=== PATIENT | male | born 1950 | race Hispanic/Latino ===

== ENCOUNTER 2020-08-20 22:19 | Inpatient (IN) | payer MEDICARE ==
[~2020-08-20] VITALS: Ht 160 cm; Wt 77.1 kg
[2020-08-20] MEDS ORDERED: ACETAMINOPHEN 325 MG TAB PO ONE (23:45)
[2020-08-20] MEDS ORDERED: CEFTRIAXONE SOD 1 GM/NS 50 ML 50 ML IV ONE (23:45)
[2020-08-20] MEDS ORDERED: VANCOMYCIN 1GM/NS 250 ML 250 ML IV ONE (23:45)
[2020-08-20] MEDS ORDERED: ONDANSETRON HCL INJ 2MG/ML 2ML 2 MG/ML VIAL ONE (23:54)
[2020-08-21] VITALS (8 sets, daily range): BP systolic 143–202; BP diastolic 46–158
[2020-08-21 00:04] LABS: BASOPHILS % 0.4 % (0.0-1.0); EOSINOPHILS % 0.4 % (0.0-6.0); HEMATOCRIT 32.4 % (38.2-49.6); HEMOGLOBIN 10.2 g/dL (14.0-18.0); LYMPHOCYTES # (AUTO) 0.6 (1.0-3.2); MEAN CORPUSCULAR HEMOGLOBIN 28.7 pg (28-32); MEAN CORPUSCULAR HGB CONC 31.5 g/dL (31-35); MONOCYTES # (AUTO) 0.7 (0.2-0.8); MONOCYTES % 7.4 % (4.4-11.3); NEUTROPHILS # (AUTO) 8.5 (2.1-6.9); NEUTROPHILS % 85.2 % (38.7-80.0); PLATELET COUNT 91 x10e3/uL (140-360); RED BLOOD COUNT 3.56 x10e6/uL (4.3-5.7); RED CELL DISTRIBUTION WIDTH 16.2 % (11.7-14.4)
[2020-08-21 00:22] LABS: ALBUMIN 3.9 g/dL (3.5-5.0); ANION GAP 20.7 mmol/L (8-16); CALCIUM 9.2 mg/dL (8.4-10.2); CREATININE, SERUM 6.45 mg/dL (0.72-1.25); POTASSIUM 3.7 mmol/L (3.5-5.1)
[2020-08-21 00:28] LABS: CREATINE KINASE MB 0.6 ng/mL (0-5.0)
[2020-08-21] MEDS ORDERED: ACETAMINOPHEN 325 MG TAB PO PRN ×2 (03:30→12:30)
[2020-08-21] MEDS ORDERED: SODIUM CHLORIDE FLUSH 10 ML SYR INJ PRN (03:30)
[2020-08-21] MEDS ORDERED: DEXTROSE 50% SYRINGE 50 ML IV PRN ×2 (03:30→12:15)
[2020-08-21] MEDS ORDERED: ONDANSETRON HCL INJ 2MG/ML 2ML 2 MG/ML VIAL IV PRN ×2 (03:30→12:30)
[2020-08-21] MEDS: HYDRALAZINE HCL 20 MG/ML VIAL IV PRN ×2 (06:08→17:38)
[2020-08-21] MEDS: INSULIN REGULAR, HUMAN 100 UNIT/1 ML 3ML VIAL SQ SCH ×6 (07:30→21:35)
[2020-08-21] MEDS ORDERED: CEFTRIAXONE SOD 2 GM/NS 100 ML 100 ML IV SCH (09:00)
[2020-08-21] MEDS ORDERED: AZITHROMYCIN 500MG/NS 250 ML 250 ML IV SCH (09:00)
[2020-08-21 09:31] LABS: BASOPHILS % 0.6 % (0.0-1.0); EOSINOPHILS % 0.3 % (0.0-6.0); HEMATOCRIT 32.7 % (38.2-49.6); HEMOGLOBIN 10.1 g/dL (14.0-18.0); LYMPHOCYTES # (AUTO) 1.1 (1.0-3.2); LYMPHOCYTES % 15.8 % (18.0-39.1); MEAN CORPUSCULAR HEMOGLOBIN 28.2 pg (28-32); MEAN CORPUSCULAR HGB CONC 30.9 g/dL (31-35); MEAN CORPUSCULAR VOLUME 91.3 fL (81-99); MONOCYTES # (AUTO) 0.9 (0.2-0.8); MONOCYTES % 13.4 % (4.4-11.3); NEUTROPHILS # (AUTO) 4.9 (2.1-6.9); NEUTROPHILS % 69.3 % (38.7-80.0); PLATELET COUNT 72 x10e3/uL (140-360); RED BLOOD COUNT 3.58 x10e6/uL (4.3-5.7); RED CELL DISTRIBUTION WIDTH 16.4 % (11.7-14.4)
[2020-08-21 09:53] LABS: ALBUMIN 3.3 g/dL (3.5-5.0); ALBUMIN/GLOBULIN RATIO 0.9 (0.8-2.0); ANION GAP 19.2 mmol/L (8-16); CALCIUM 8.6 mg/dL (8.4-10.2); CREATININE, SERUM 7.51 mg/dL (0.72-1.25); POTASSIUM 4.2 mmol/L (3.5-5.1)
[2020-08-21] MEDS: ZINC SULFATE 220 MG CAP PO SCH (11:17)
[2020-08-21] MEDS: ASCORBIC ACID 500 MG TAB PO SCH ×2 (11:17→17:38)
[2020-08-21] MEDS ORDERED: SODIUM CHLORIDE 0.9% 250ML 250 ML ONE (11:20)
[2020-08-21] MEDS ORDERED: HYDRALAZINE HCL 20 MG/ML VIAL IV PRN (12:15)
[2020-08-21] MEDS ORDERED: GUAIFENESIN 200 MG/10 ML UDC PO PRN (12:30)
[2020-08-21] MEDS ORDERED: NIFEDIPINE CR 30 MG TAB PO ONE (13:00)
[2020-08-21] MEDS ORDERED: RENAL-VITE TAB0.8 MG (19:20)
[2020-08-21] MEDS ORDERED: ATORVASTATIN CA20 MG PO (19:20)
[2020-08-21] MEDS ORDERED: TRICOR145 MG PO (19:20)
[2020-08-21] MEDS ORDERED: CLONIDINE HCL0.1 MG PO (19:20)
[2020-08-21] MEDS ORDERED: METOCLOPRAM5 MG/5 ML PO (19:20)
[2020-08-21] MEDS ORDERED: RENAGEL800 MG PO (19:20)
[2020-08-21] MEDS ORDERED: NIFEDIPINE ER30 MG (19:20)
[2020-08-21] MEDS ORDERED: OMEPRAZOLE40 MG PO (19:20)
[2020-08-21] MEDS: HEPARIN SOD (PORCINE) 5,000 UNIT/ML VIAL SC SCH (21:35)
[2020-08-22] VITALS (9 sets, daily range): BP systolic 116–173; BP diastolic 65–73
[2020-08-22 06:02] LABS: BASOPHILS # (AUTO) 0.1 (0.0-0.1); EOSINOPHILS # (AUTO) 0.1 (0.0-0.4); EOSINOPHILS % 0.8 % (0.0-6.0); HEMATOCRIT 32.3 % (38.2-49.6); LYMPHOCYTES # (AUTO) 1.5 (1.0-3.2); LYMPHOCYTES % 24.4 % (18.0-39.1); MEAN CORPUSCULAR HEMOGLOBIN 28.2 pg (28-32); MEAN CORPUSCULAR VOLUME 91.2 fL (81-99); MONOCYTES % 16.7 % (4.4-11.3); NEUTROPHILS # (AUTO) 3.5 (2.1-6.9); NEUTROPHILS % 56.8 % (38.7-80.0); PLATELET COUNT 88 x10e3/uL (140-360); RED BLOOD COUNT 3.54 x10e6/uL (4.3-5.7); RED CELL DISTRIBUTION WIDTH 15.9 % (11.7-14.4)
[2020-08-22 06:26] LABS: ALBUMIN 3.1 g/dL (3.5-5.0); ALBUMIN/GLOBULIN RATIO 0.9 (0.8-2.0); ANION GAP 20.2 mmol/L (8-16); CALCIUM 8.2 mg/dL (8.4-10.2); CREATININE, SERUM 9.69 mg/dL (0.72-1.25); POTASSIUM 4.2 mmol/L (3.5-5.1)
[2020-08-22] MEDS: INSULIN REGULAR, HUMAN 100 UNIT/1 ML 3ML VIAL SQ SCH ×6 (07:30→21:00)
[2020-08-22] MEDS: CEFEPIME 1GM/NS 0.9% 50 ML 50 ML IV SCH (08:54)
[2020-08-22] MEDS: NIFEDIPINE CR 30 MG TAB PO SCH (08:55)
[2020-08-22] MEDS: ZINC SULFATE 220 MG CAP PO SCH (08:56)
[2020-08-22] MEDS: ASCORBIC ACID 500 MG TAB PO SCH ×2 (08:56→16:37)
[2020-08-22] MEDS ORDERED: CEFEPIME HCL 1 GM VIAL IV SCH (09:00)
[2020-08-22] MEDS: HEPARIN SOD (PORCINE) 5,000 UNIT/ML VIAL SC SCH ×2 (09:09→21:00)
[2020-08-22] MEDS ORDERED: BAMLANIVIMAB 700 MG in SODIUM CHLORIDE 0.9% 250ML 250 ML IV ONE (15:00)
[2020-08-22] MEDS ORDERED: SODIUM CHLORIDE 0.9% 1000ML 2,000 ML ONE (18:23)
[2020-08-23] VITALS: BP 142/86
[2020-08-23 04:00] VITALS: BP 164/78
[2020-08-23 09:00] VITALS: BP 159/60
[2020-08-23 09:15] VITALS: BP 159/60
[2020-08-23 09:25] LABS: BASOPHILS % 0.4 % (0.0-1.0); HEMOGLOBIN 8.9 g/dL (14.0-18.0); LYMPHOCYTES % 9.2 % (18.0-39.1); MEAN CORPUSCULAR HEMOGLOBIN 28.3 pg (28-32); MEAN CORPUSCULAR HGB CONC 30.7 g/dL (31-35); MEAN CORPUSCULAR VOLUME 92.4 fL (81-99); MONOCYTES # (AUTO) 0.9 (0.2-0.8); NEUTROPHILS # (AUTO) 8.9 (2.1-6.9); PLATELET COUNT 72 x10e3/uL (140-360); RED BLOOD COUNT 3.14 x10e6/uL (4.3-5.7)
[2020-08-23] MEDS: CEFEPIME 1GM/NS 0.9% 50 ML 50 ML IV SCH (09:34)
[2020-08-23] MEDS: ZINC SULFATE 220 MG CAP PO SCH (09:35)
[2020-08-23] MEDS: ASCORBIC ACID 500 MG TAB PO SCH (09:35)
[2020-08-23] MEDS: NIFEDIPINE CR 30 MG TAB PO SCH (09:35)
[2020-08-23] MEDS: HEPARIN SOD (PORCINE) 5,000 UNIT/ML VIAL SC SCH (09:48)
[2020-08-23] MEDS: INSULIN REGULAR, HUMAN 100 UNIT/1 ML 3ML VIAL SQ SCH ×3 (09:49→16:30)
[2020-08-23 10:01] LABS: ALBUMIN 2.3 g/dL (3.5-5.0); ALBUMIN/GLOBULIN RATIO 0.7 (0.8-2.0); CREATININE, SERUM 6.64 mg/dL (0.72-1.25)
[2020-08-23 10:02] LABS: ANION GAP 4.9 mmol/L (8-16)
[2020-08-23 10:06] LABS: CALCIUM 5.9 mg/dL (8.4-10.2); POTASSIUM 2.9 mmol/L (3.5-5.1)
[2020-08-23] MEDS ORDERED: SODIUM CHLORIDE 0.9% 1000ML 2,000 ML IV PRN (11:15)
[2020-08-23] MEDS ORDERED: ALBUMIN 25% 12.5GM 0.25 GM/ML BTL IV PRN (11:15)
[2020-08-23] MEDS ORDERED: MANNITOL 25% 12.5GM/50 ML VIAL IV PRN (11:15)
[2020-08-23 13:06] VITALS: BP 149/65
[2020-08-23 16:59] VITALS: BP 127/46
== END 2020-08-23 16:59 | disposition home health service (06) | DRG 871 ==
LOC: ER 23:37 → ERHOLD 08-21 03:28 → IMCU 08-21 08:23
PROVIDERS: ADMIT Internal Medicine Critical Care Medicine; ATTEND Internal Medicine Critical Care Medicine
DX: A41.9 Sepsis, unspecified organism (principal); U07.1 COVID-19; G93.41 Metabolic encephalopathy; N18.6 End stage renal disease; J12.82 Pneumonia due to coronavirus disease 2019; G92 Toxic encephalopathy; I12.0 Hypertensive chronic kidney disease with stage 5 chronic kidney disease or end stage renal disease; E11.22 Type 2 diabetes mellitus with diabetic chronic kidney disease; D63.1 Anemia in chronic kidney disease; D69.59 Other secondary thrombocytopenia; Z86.73 Personal history of transient ischemic attack (TIA), and cerebral infarction without residual deficits
CPT/HCPCS: 36415; 70450; 71045; 80053; 80329; 82550; 82553; 82948; 83605; 84484; 85025; 86704; 86706; 87040; 87340; J0360; J0456; J0692; J0696; J1644; J2405; J3370; J7030; J7050; U0002

== ENCOUNTER 2020-08-31 23:06 | Inpatient (IN) | payer MEDICARE ==
[~2020-08-31] VITALS: Ht 160 cm; Wt 70.3 kg
[~2020-08-31 23:06] MED LIST: ATORVASTATIN CA20 MG PO; CLONIDINE HCL0.1 MG PO; METOCLOPRAM5 MG/5 ML PO; NIFEDIPINE ER30 MG; OMEPRAZOLE40 MG PO; RENAGEL800 MG PO; RENAL-VITE TAB0.8 MG; TRICOR145 MG PO
[2020-08-31] MEDS ORDERED: ACETAMINOPHEN 325 MG TAB PO ONE (23:15)
[2020-08-31] MEDS ORDERED: ACETAMINOPHEN 325 MG TAB ONE (23:20)
[2020-08-31 23:30] LABS: BASOPHILS % 0.3 % (0.0-1.0); HEMATOCRIT 31.9 % (38.2-49.6); LYMPHOCYTES # (AUTO) 1.2 (1.0-3.2); LYMPHOCYTES % 10.7 % (18.0-39.1); MEAN CORPUSCULAR HEMOGLOBIN 27.9 pg (28-32); MEAN CORPUSCULAR HGB CONC 31.3 g/dL (31-35); MEAN CORPUSCULAR VOLUME 89.1 fL (81-99); MONOCYTES # (AUTO) 0.5 (0.2-0.8); MONOCYTES % 4.1 % (4.4-11.3); NEUTROPHILS # (AUTO) 9.3 (2.1-6.9); NEUTROPHILS % 84.3 % (38.7-80.0); PLATELET COUNT 202 x10e3/uL (140-360); RED BLOOD COUNT 3.58 x10e6/uL (4.3-5.7); RED CELL DISTRIBUTION WIDTH 14.7 % (11.7-14.4)
[2020-08-31 23:49] LABS: ALBUMIN 3.3 g/dL (3.5-5.0); ALBUMIN/GLOBULIN RATIO 0.7 (0.8-2.0); ANION GAP 22.3 mmol/L (8-16); CALCIUM 9.2 mg/dL (8.4-10.2); CREATININE, SERUM 4.9 mg/dL (0.72-1.25); POTASSIUM 3.3 mmol/L (3.5-5.1)
[2020-08-31 23:56] LABS: CREATINE KINASE MB 1.3 ng/mL (0-5.0)
[2020-09-01] VITALS (10 sets, daily range): BP systolic 96–200; BP diastolic 47–75
[2020-09-01] MEDS ORDERED: ASPIRIN 81 MG CHEW TAB PO ONE (00:15)
[2020-09-01] MEDS ORDERED: CEFEPIME 1GM/NS 0.9% 50 ML 50 ML IV ONE (00:15)
[2020-09-01] MEDS: ASPIRIN 81 MG CHEW TAB PO SCH ×2 (00:46→09:01)
[2020-09-01] MEDS ORDERED: DEXTROSE 50% SYRINGE 50 ML IV PRN (01:15)
[2020-09-01] MEDS ORDERED: SODIUM CHLORIDE FLUSH 10 ML SYR INJ PRN (01:15)
[2020-09-01 03:57] LABS: CREATINE KINASE MB 1.2 ng/mL (0-5.0)
[2020-09-01] MEDS ORDERED: METOCLOPRAMIDE HCL 10 MG TAB PO PRN (05:30)
[2020-09-01] MEDS: INSULIN REGULAR, HUMAN 100 UNIT/1 ML 3ML VIAL SQ SCH ×4 (07:30→21:00)
[2020-09-01 08:25] LABS: CREATINE KINASE MB 1.6 ng/mL (0-5.0)
[2020-09-01] MEDS ORDERED: ASPIRIN 81 MG ENTERIC COATED PO SCH (09:00)
[2020-09-01] MEDS ORDERED: DEXAMETHASONE SOD PHOS INJ 4 MG/ML VIAL IV ONE (09:00)
[2020-09-01] MEDS: FOLIC ACID/CYANOCOB/PYRIDOXINE TAB PO SCH (09:01)
[2020-09-01] MEDS: FENOFIBRATE 145 MG TAB PO SCH (09:01)
[2020-09-01] MEDS: PANTOPRAZOLE SOD 40 MG TABEC PO SCH (09:01)
[2020-09-01] MEDS: NIFEDIPINE CR 30 MG TAB PO SCH ×2 (09:01→17:14)
[2020-09-01] MEDS: HEPARIN SOD (PORCINE) 5,000 UNIT/ML VIAL SC SCH ×2 (09:02→22:43)
[2020-09-01] MEDS: METOPROLOL TARTRATE 25 MG TAB PO SCH ×2 (10:50→16:00)
[2020-09-01] MEDS: HYDRALAZINE HCL 20 MG/ML VIAL IV PRN (11:50)
[2020-09-01] MEDS: SEVELAMER CARBONATE 800 MG TAB PO SCH ×2 (11:56→17:14)
[2020-09-01] MEDS: ATORVASTATIN 20 MG TAB PO SCH (22:38)
[2020-09-02] VITALS (9 sets, daily range): BP systolic 101–182; BP diastolic 50–77
[2020-09-02] MEDS: ACETAMINOPHEN 325 MG TAB PO PRN (02:54)
[2020-09-02] MEDS ORDERED: ONDANSETRON HCL INJ 2MG/ML 2ML 2 MG/ML VIAL IV PRN (03:30)
[2020-09-02] MEDS ORDERED: KETOROLAC TROMETHAMINE 30 MG/ML VIAL IV STA (03:36)
[2020-09-02] MEDS: METHYLPREDNISOLONE SOD SUCC 125 MG/2ML VIAL IV SCH ×2 (04:15→14:30)
[2020-09-02 05:00] LABS: BASOPHILS % 0.3 % (0.0-1.0); HEMATOCRIT 25.9 % (38.2-49.6); HEMOGLOBIN 8.3 g/dL (14.0-18.0); LYMPHOCYTES # (AUTO) 1.3 (1.0-3.2); LYMPHOCYTES % 12.6 % (18.0-39.1); MEAN CORPUSCULAR VOLUME 87.5 fL (81-99); MONOCYTES # (AUTO) 0.3 (0.2-0.8); MONOCYTES % 2.6 % (4.4-11.3); NEUTROPHILS # (AUTO) 8.4 (2.1-6.9); PLATELET COUNT 218 x10e3/uL (140-360); RED BLOOD COUNT 2.96 x10e6/uL (4.3-5.7); RED CELL DISTRIBUTION WIDTH 14.5 % (11.7-14.4)
[2020-09-02 05:23] LABS: ALBUMIN 2.6 g/dL (3.5-5.0); ALBUMIN/GLOBULIN RATIO 0.6 (0.8-2.0); ANION GAP 21.4 mmol/L (8-16); CALCIUM 8.2 mg/dL (8.4-10.2); CREATININE, SERUM 8.4 mg/dL (0.72-1.25); POTASSIUM 3.4 mmol/L (3.5-5.1)
[2020-09-02] MEDS: METOCLOPRAMIDE HCL 10 MG/2ML VIAL IV SCH ×4 (08:30→23:00)
[2020-09-02] MEDS: INSULIN REGULAR, HUMAN 100 UNIT/1 ML 3ML VIAL SQ SCH ×4 (08:30→21:00)
[2020-09-02] MEDS: SEVELAMER CARBONATE 800 MG TAB PO SCH ×3 (08:30→17:02)
[2020-09-02] MEDS: HEPARIN SOD (PORCINE) 5,000 UNIT/ML VIAL SC SCH ×2 (08:30→22:00)
[2020-09-02] MEDS: FOLIC ACID/CYANOCOB/PYRIDOXINE TAB PO SCH (08:30)
[2020-09-02] MEDS: FENOFIBRATE 145 MG TAB PO SCH (08:30)
[2020-09-02] MEDS: ASPIRIN 81 MG CHEW TAB PO SCH (08:30)
[2020-09-02] MEDS: PANTOPRAZOLE SOD 40 MG TABEC PO SCH (08:30)
[2020-09-02] MEDS: NIFEDIPINE CR 30 MG TAB PO SCH ×2 (09:00→16:06)
[2020-09-02] MEDS: METOPROLOL TARTRATE 25 MG TAB PO SCH ×2 (09:00→16:06)
[2020-09-02 09:49] LABS: CHOL/HDL RATIO 6.8 (3.9-4.7)
[2020-09-02 10:11] LABS: THYROID STIMULATING HORMONE 1.789 uIU/mL (0.350-4.940)
[2020-09-02] MEDS ORDERED: SODIUM CHLORIDE 0.9% 1000ML 2,000 ML IV PRN (12:30)
[2020-09-02] MEDS: CEFTRIAXONE SOD 1 GM in SODIUM CHLORIDE 0.9% 50ML 50 ML IV SCH ×2 (20:39→23:00)
[2020-09-02] MEDS ORDERED: SODIUM CHLORIDE 0.9% 250ML 250 ML ONE (21:37)
[2020-09-02] MEDS: ATORVASTATIN 20 MG TAB PO SCH (23:21)
[2020-09-03] VITALS (8 sets, daily range): BP systolic 118–172; BP diastolic 61–78
[2020-09-03] MEDS: HYDRALAZINE HCL 20 MG/ML VIAL IV PRN (06:03)
[2020-09-03] MEDS: METOCLOPRAMIDE HCL 10 MG/2ML VIAL IV SCH ×4 (09:45→20:48)
[2020-09-03] MEDS: PANTOPRAZOLE SOD 40 MG TABEC PO SCH (09:45)
[2020-09-03] MEDS: DEXAMETHASONE SOD PHOS INJ 4 MG/ML VIAL IV SCH (09:45)
[2020-09-03] MEDS: SEVELAMER CARBONATE 800 MG TAB PO SCH ×3 (09:45→16:32)
[2020-09-03] MEDS: NIFEDIPINE CR 30 MG TAB PO SCH ×2 (09:46→16:32)
[2020-09-03] MEDS: ASPIRIN 81 MG CHEW TAB PO SCH (09:46)
[2020-09-03] MEDS: FENOFIBRATE 145 MG TAB PO SCH (09:46)
[2020-09-03] MEDS: FOLIC ACID/CYANOCOB/PYRIDOXINE TAB PO SCH (09:46)
[2020-09-03] MEDS: METOPROLOL TARTRATE 25 MG TAB PO SCH ×2 (09:46→16:32)
[2020-09-03] MEDS: INSULIN REGULAR, HUMAN 100 UNIT/1 ML 3ML VIAL SQ SCH ×4 (09:58→20:49)
[2020-09-03] MEDS: HEPARIN SOD (PORCINE) 5,000 UNIT/ML VIAL SC SCH ×2 (09:58→20:49)
[2020-09-03] MEDS: PIPERACILLIN/TAZOBAC 3.375 GM in SODIUM CHLORIDE 0.9% 50ML 50 ML IV SCH (16:31)
[2020-09-03] MEDS: ACETAMINOPHEN 325 MG TAB PO PRN (16:33)
[2020-09-03] MEDS: ATORVASTATIN 20 MG TAB PO SCH (20:48)
[2020-09-04] VITALS (8 sets, daily range): BP systolic 125–158; BP diastolic 55–66
[2020-09-04] MEDS ORDERED: INSULIN GLARGINE 100 UNITS/ML VIAL SQ ONE (02:15)
[2020-09-04] MEDS: INSULIN REGULAR, HUMAN 100 UNIT/1 ML 3ML VIAL SQ SCH ×3 (07:30→15:31)
[2020-09-04] MEDS: METOCLOPRAMIDE HCL 10 MG/2ML VIAL IV SCH ×4 (10:29→23:36)
[2020-09-04] MEDS: SEVELAMER CARBONATE 800 MG TAB PO SCH ×3 (10:29→16:19)
[2020-09-04] MEDS: DEXAMETHASONE SOD PHOS INJ 4 MG/ML VIAL IV SCH (10:29)
[2020-09-04] MEDS: PANTOPRAZOLE SOD 40 MG TABEC PO SCH (10:29)
[2020-09-04] MEDS: FOLIC ACID/CYANOCOB/PYRIDOXINE TAB PO SCH (10:30)
[2020-09-04] MEDS: METOPROLOL TARTRATE 25 MG TAB PO SCH ×2 (10:30→16:19)
[2020-09-04] MEDS: ASPIRIN 81 MG CHEW TAB PO SCH (10:30)
[2020-09-04] MEDS: NIFEDIPINE CR 30 MG TAB PO SCH ×2 (10:30→16:19)
[2020-09-04] MEDS: PIPERACILLIN/TAZOBAC 3.375 GM in SODIUM CHLORIDE 0.9% 50ML 50 ML IV SCH ×2 (10:30→16:19)
[2020-09-04] MEDS: FENOFIBRATE 145 MG TAB PO SCH (10:30)
[2020-09-04] MEDS: HEPARIN SOD (PORCINE) 5,000 UNIT/ML VIAL SC SCH (10:31)
[2020-09-04] MEDS ORDERED: ALBUMIN 25% 12.5GM 0.25 GM/ML BTL IV ONE (20:30)
[2020-09-04] MEDS: ATORVASTATIN 20 MG TAB PO SCH (23:36)
[2020-09-04] MEDS: INSULIN GLARGINE 100 UNITS/ML VIAL SQ SCH (23:48)
[2020-09-05] VITALS (8 sets, daily range): BP systolic 124–157; BP diastolic 49–77
[2020-09-05] MEDS: HEPARIN SOD (PORCINE) 5,000 UNIT/ML VIAL SC SCH ×3 (00:30→21:00)
[2020-09-05] MEDS: INSULIN REGULAR, HUMAN 100 UNIT/1 ML 3ML VIAL SQ SCH ×5 (00:31→21:00)
[2020-09-05] MEDS ORDERED: SODIUM CHLORIDE 0.9% 250ML 500 ML IV PRN (09:30)
[2020-09-05] MEDS ORDERED: MANNITOL 25% 12.5GM/50 ML VIAL IV PRN (09:30)
[2020-09-05] MEDS ORDERED: ALBUMIN 25% 12.5GM 0.25 GM/ML BTL IV PRN (09:30)
[2020-09-05] MEDS: SEVELAMER CARBONATE 800 MG TAB PO SCH ×3 (11:21→17:38)
[2020-09-05] MEDS: ASPIRIN 81 MG CHEW TAB PO SCH (11:21)
[2020-09-05] MEDS: METOCLOPRAMIDE HCL 10 MG/2ML VIAL IV SCH ×4 (11:21→21:12)
[2020-09-05] MEDS: PANTOPRAZOLE SOD 40 MG TABEC PO SCH (11:21)
[2020-09-05] MEDS: PIPERACILLIN/TAZOBAC 3.375 GM in SODIUM CHLORIDE 0.9% 50ML 50 ML IV SCH ×2 (11:21→17:38)
[2020-09-05] MEDS: DEXAMETHASONE SOD PHOS INJ 4 MG/ML VIAL IV SCH (11:21)
[2020-09-05] MEDS: METOPROLOL TARTRATE 25 MG TAB PO SCH ×2 (11:22→17:38)
[2020-09-05] MEDS: NIFEDIPINE CR 30 MG TAB PO SCH ×2 (11:22→17:38)
[2020-09-05] MEDS: FENOFIBRATE 145 MG TAB PO SCH (11:22)
[2020-09-05] MEDS: FOLIC ACID/CYANOCOB/PYRIDOXINE TAB PO SCH (11:22)
[2020-09-05] MEDS: ATORVASTATIN 20 MG TAB PO SCH (21:00)
[2020-09-05] MEDS: INSULIN GLARGINE 100 UNITS/ML VIAL SQ SCH (21:00)
[2020-09-06] VITALS (7 sets, daily range): BP systolic 134–175; BP diastolic 49–84
[2020-09-06] MEDS: INSULIN REGULAR, HUMAN 100 UNIT/1 ML 3ML VIAL SQ SCH ×4 (07:30→21:44)
[2020-09-06] MEDS: METOCLOPRAMIDE HCL 10 MG/2ML VIAL IV SCH ×4 (10:26→21:44)
[2020-09-06] MEDS: DEXAMETHASONE SOD PHOS INJ 4 MG/ML VIAL IV SCH (10:27)
[2020-09-06] MEDS: FOLIC ACID/CYANOCOB/PYRIDOXINE TAB PO SCH (10:27)
[2020-09-06] MEDS: METOPROLOL TARTRATE 25 MG TAB PO SCH ×2 (10:27→17:00)
[2020-09-06] MEDS: PANTOPRAZOLE SOD 40 MG TABEC PO SCH (10:27)
[2020-09-06] MEDS: PIPERACILLIN/TAZOBAC 3.375 GM in SODIUM CHLORIDE 0.9% 50ML 50 ML IV SCH ×2 (10:27→17:50)
[2020-09-06] MEDS: ASPIRIN 81 MG CHEW TAB PO SCH (10:27)
[2020-09-06] MEDS: SEVELAMER CARBONATE 800 MG TAB PO SCH ×3 (10:27→17:00)
[2020-09-06] MEDS: FENOFIBRATE 145 MG TAB PO SCH (10:28)
[2020-09-06] MEDS: NIFEDIPINE CR 30 MG TAB PO SCH ×2 (10:28→17:00)
[2020-09-06] MEDS: HEPARIN SOD (PORCINE) 5,000 UNIT/ML VIAL SC SCH ×2 (10:28→21:44)
[2020-09-06] MEDS: ATORVASTATIN 20 MG TAB PO SCH (21:00)
[2020-09-06] MEDS: INSULIN GLARGINE 100 UNITS/ML VIAL SQ SCH (21:44)
[2020-09-07] VITALS (9 sets, daily range): BP systolic 122–197; BP diastolic 57–87
[2020-09-07] MEDS: HYDRALAZINE HCL 20 MG/ML VIAL IV PRN ×3 (00:37→09:00)
[2020-09-07] MEDS: INSULIN REGULAR, HUMAN 100 UNIT/1 ML 3ML VIAL SQ SCH ×4 (07:30→21:00)
[2020-09-07] MEDS: PANTOPRAZOLE SOD 40 MG TABEC PO SCH (08:59)
[2020-09-07] MEDS: SEVELAMER CARBONATE 800 MG TAB PO SCH ×3 (08:59→17:00)
[2020-09-07] MEDS: METOCLOPRAMIDE HCL 10 MG/2ML VIAL IV SCH ×4 (08:59→21:30)
[2020-09-07] MEDS: METOPROLOL TARTRATE 25 MG TAB PO SCH ×2 (09:00→17:00)
[2020-09-07] MEDS: FOLIC ACID/CYANOCOB/PYRIDOXINE TAB PO SCH (09:00)
[2020-09-07] MEDS: PIPERACILLIN/TAZOBAC 3.375 GM in SODIUM CHLORIDE 0.9% 50ML 50 ML IV SCH ×2 (09:00→17:00)
[2020-09-07] MEDS: ASPIRIN 81 MG CHEW TAB PO SCH (09:00)
[2020-09-07] MEDS: FENOFIBRATE 145 MG TAB PO SCH (09:00)
[2020-09-07] MEDS: DEXAMETHASONE SOD PHOS INJ 4 MG/ML VIAL IV SCH (09:00)
[2020-09-07] MEDS: NIFEDIPINE CR 30 MG TAB PO SCH ×2 (09:00→17:00)
[2020-09-07] MEDS: HEPARIN SOD (PORCINE) 5,000 UNIT/ML VIAL SC SCH ×2 (09:03→21:30)
[2020-09-07 11:07] LABS: BASOPHILS % 0.3 % (0.0-1.0); EOSINOPHILS # (AUTO) 0.2 (0.0-0.4); EOSINOPHILS % 1.3 % (0.0-6.0); HEMATOCRIT 25.4 % (38.2-49.6); HEMOGLOBIN 8.1 g/dL (14.0-18.0); LYMPHOCYTES # (AUTO) 0.7 (1.0-3.2); LYMPHOCYTES % 6.3 % (18.0-39.1); MEAN CORPUSCULAR HEMOGLOBIN 27.4 pg (28-32); MEAN CORPUSCULAR HGB CONC 31.9 g/dL (31-35); MEAN CORPUSCULAR VOLUME 85.8 fL (81-99); MONOCYTES # (AUTO) 0.4 (0.2-0.8); MONOCYTES % 3.8 % (4.4-11.3); NEUTROPHILS # (AUTO) 10.1 (2.1-6.9); NEUTROPHILS % 86.8 % (38.7-80.0); PLATELET COUNT 417 x10e3/uL (140-360); RED BLOOD COUNT 2.96 x10e6/uL (4.3-5.7); RED CELL DISTRIBUTION WIDTH 14.8 % (11.7-14.4)
[2020-09-07 12:01] LABS: ANION GAP 24.1 mmol/L (8-16); CALCIUM 9.2 mg/dL (8.4-10.2); CREATININE, SERUM 11.22 mg/dL (0.72-1.25); POTASSIUM 5.1 mmol/L (3.5-5.1)
[2020-09-07] MEDS: ATORVASTATIN 20 MG TAB PO SCH (21:30)
[2020-09-08] VITALS (8 sets, daily range): BP systolic 104–164; BP diastolic 59–77
[2020-09-08] MEDS: INSULIN REGULAR, HUMAN 100 UNIT/1 ML 3ML VIAL SQ SCH ×4 (07:30→20:24)
[2020-09-08] MEDS: PANTOPRAZOLE SOD 40 MG TABEC PO SCH (09:39)
[2020-09-08] MEDS: METOCLOPRAMIDE HCL 10 MG/2ML VIAL IV SCH ×4 (09:39→20:09)
[2020-09-08] MEDS: DEXAMETHASONE SOD PHOS INJ 4 MG/ML VIAL IV SCH (09:39)
[2020-09-08] MEDS: SEVELAMER CARBONATE 800 MG TAB PO SCH ×3 (09:39→17:32)
[2020-09-08] MEDS: ASPIRIN 81 MG CHEW TAB PO SCH (09:40)
[2020-09-08] MEDS: PIPERACILLIN/TAZOBAC 3.375 GM in SODIUM CHLORIDE 0.9% 50ML 50 ML IV SCH ×2 (09:40→17:29)
[2020-09-08] MEDS: METOPROLOL TARTRATE 25 MG TAB PO SCH ×2 (09:41→17:30)
[2020-09-08] MEDS: FENOFIBRATE 145 MG TAB PO SCH (09:42)
[2020-09-08] MEDS: NIFEDIPINE CR 30 MG TAB PO SCH ×2 (09:42→17:31)
[2020-09-08] MEDS: FOLIC ACID/CYANOCOB/PYRIDOXINE TAB PO SCH (09:42)
[2020-09-08] MEDS ORDERED: DECADRON4 M1 PO (14:06)
[2020-09-08] MEDS ORDERED: ASPIRIN CHEW81 MG PO (14:06)
[2020-09-08] MEDS ORDERED: LOPRESSOR25 MG PO (14:06)
[2020-09-08] MEDS: ATORVASTATIN 20 MG TAB PO SCH (20:09)
[2020-09-09 01:07] VITALS: BP 140/62
[2020-09-09 06:27] VITALS: BP 164/73
[2020-09-09] MEDS: INSULIN REGULAR, HUMAN 100 UNIT/1 ML 3ML VIAL SQ SCH ×2 (07:30→11:30)
[2020-09-09 07:43] VITALS: BP 164/73
[2020-09-09 08:18] VITALS: BP 152/69
[2020-09-09] MEDS: METOPROLOL TARTRATE 25 MG TAB PO SCH (09:00)
[2020-09-09] MEDS: PIPERACILLIN/TAZOBAC 3.375 GM in SODIUM CHLORIDE 0.9% 50ML 50 ML IV SCH (09:00)
[2020-09-09] MEDS: NIFEDIPINE CR 30 MG TAB PO SCH (09:00)
[2020-09-09] MEDS: PANTOPRAZOLE SOD 40 MG TABEC PO SCH (09:06)
[2020-09-09] MEDS: ASPIRIN 81 MG CHEW TAB PO SCH (09:06)
[2020-09-09] MEDS: FENOFIBRATE 145 MG TAB PO SCH (09:06)
[2020-09-09] MEDS: SEVELAMER CARBONATE 800 MG TAB PO SCH ×2 (09:06→12:00)
[2020-09-09] MEDS: METOCLOPRAMIDE HCL 10 MG/2ML VIAL IV SCH ×2 (09:06→11:30)
[2020-09-09] MEDS: DEXAMETHASONE SOD PHOS INJ 4 MG/ML VIAL IV SCH (09:06)
[2020-09-09] MEDS: FOLIC ACID/CYANOCOB/PYRIDOXINE TAB PO SCH (09:06)
[2020-09-09 11:25] VITALS: BP 130/66
== END 2020-09-09 15:30 | disposition home health service (06) | DRG 871 ==
LOC: ER 23:08 → ERHOLD 09-01 01:08 → IMCU 09-01 01:57 → OBSVTOIN 09-01 09:58
PROVIDERS: ADMIT Internal Medicine Critical Care Medicine; ATTEND Internal Medicine Critical Care Medicine
PROC: 3E0333Z Introduction of Anti-inflammatory into Peripheral Vein, Percutaneous Approach (ICD-10-PCS; 2020-09-01)
PROC: 5A1D70Z Performance of Urinary Filtration, Intermittent, Less than 6 Hours Per Day (ICD-10-PCS; principal; 2020-09-02)
PROC: 5A1D70Z Performance of Urinary Filtration, Intermittent, Less than 6 Hours Per Day (ICD-10-PCS; 2020-09-04)
PROC: 5A1D70Z Performance of Urinary Filtration, Intermittent, Less than 6 Hours Per Day (ICD-10-PCS; 2020-09-07)
PROC: 5A1D70Z Performance of Urinary Filtration, Intermittent, Less than 6 Hours Per Day (ICD-10-PCS; 2020-09-09)
DX: A41.89 Other specified sepsis (principal); U07.1 COVID-19; J12.82 Pneumonia due to coronavirus disease 2019; N18.6 End stage renal disease; J15.9 Unspecified bacterial pneumonia; I12.0 Hypertensive chronic kidney disease with stage 5 chronic kidney disease or end stage renal disease; E11.22 Type 2 diabetes mellitus with diabetic chronic kidney disease; Z99.2 Dependence on renal dialysis; E87.6 Hypokalemia; R09.02 Hypoxemia; D64.9 Anemia, unspecified; I25.10 Atherosclerotic heart disease of native coronary artery without angina pectoris; Z79.82 Long term (current) use of aspirin; Z86.73 Personal history of transient ischemic attack (TIA), and cerebral infarction without residual deficits
CPT/HCPCS: 36415; 71045; 80048; 80053; 80061; 82550; 82553; 82948; 84443; 84484; 85025; 86704; 86705; 86706; 86707; 87040; 87340; 87350; 93005; 93306; 97139; 99251; 99284; J0360; J0692; J0696; J1100; J1644; J1815; J1817; J1885; J2543; J2765; J2930; J7030; J7050; J7799; U0002

== ENCOUNTER → 2021-01-25 | Day surgery (SDC) | payer MEDICARE ==
[~2021-01-25] MED LIST changes: +ASPIRIN CHEW81 MG PO; +DECADRON4 M1 PO; +DIALYVITE 8000.8 M1 PO; +FENTANYL CITRATE/PF 100MCG/2 ML INJ ONE; +LANTUS 3ML100 UNITS/ SC; +LOPRESSOR25 MG PO; +MIDAZOLAM HCL 2 MG/2 ML VIAL ONE; -NIFEDIPINE ER30 MG; +NIFEDIPINE ER30 MG PO; +OR PHACO EYE KIT ONE; +PREOP PHACO EYE KIT ONE; +SODIUM CHLORIDE 0.9% 250ML 250 ML ONE; +SODIUM POLYSTY454 GM PO
[2021-01-25 12:05] LABS: BASOPHILS # (AUTO) 0.1 (0.0-0.1); BASOPHILS % 1.1 % (0.0-1.0); EOSINOPHILS # (AUTO) 0.2 (0.0-0.4); EOSINOPHILS % 3.9 % (0.0-6.0); HEMATOCRIT 30.5 % (38.2-49.6); HEMOGLOBIN 9.3 g/dL (14.0-18.0); LYMPHOCYTES # (AUTO) 1.4 (1.0-3.2); LYMPHOCYTES % 23.1 % (18.0-39.1); MEAN CORPUSCULAR HEMOGLOBIN 26.6 pg (28-32); MEAN CORPUSCULAR HGB CONC 30.5 g/dL (31-35); MEAN CORPUSCULAR VOLUME 87.4 fL (81-99); MONOCYTES # (AUTO) 0.7 (0.2-0.8); MONOCYTES % 11.7 % (4.4-11.3); NEUTROPHILS # (AUTO) 3.7 (2.1-6.9); NEUTROPHILS % 59.7 % (38.7-80.0); PLATELET COUNT 109 x10e3/uL (140-360); RED BLOOD COUNT 3.49 x10e6/uL (4.3-5.7); RED CELL DISTRIBUTION WIDTH 20.8 % (11.7-14.4)
[2021-01-25 12:27] LABS: INR 0.94; PARTIAL THROMBOPLASTIN TIME 24.8 seconds (23.8-35.5); PROTHROMBIN TIME 13.2 seconds (11.9-14.5)
[2021-01-25 12:31] LABS: ANION GAP 18.3 mmol/L (8-16); CALCIUM 8.9 mg/dL (8.4-10.2); CREATININE, SERUM 7.34 mg/dL (0.72-1.25); POTASSIUM 4.3 mmol/L (3.5-5.1)
[2021-01-25 13:40] VITALS: BP 110/59
== END | disposition home or self-care (01) ==
LOC: OR 10:59
PROVIDERS: ATTEND Ophthalmology
DX: H25.12 Age-related nuclear cataract, left eye (principal); E11.22 Type 2 diabetes mellitus with diabetic chronic kidney disease; I12.0 Hypertensive chronic kidney disease with stage 5 chronic kidney disease or end stage renal disease; N18.6 End stage renal disease; E78.5 Hyperlipidemia, unspecified; I77.9 Disorder of arteries and arterioles, unspecified; K21.9 Gastro-esophageal reflux disease without esophagitis; I69.398 Other sequelae of cerebral infarction; I69.328 Other speech and language deficits following cerebral infarction; R26.89 Other abnormalities of gait and mobility; Z01.812 Encounter for preprocedural laboratory examination; Z20.822 Contact with and (suspected) exposure to COVID-19; Z79.02 Long term (current) use of antithrombotics/antiplatelets; Z79.82 Long term (current) use of aspirin; Z79.4 Long term (current) use of insulin; Z99.2 Dependence on renal dialysis; Z87.01 Personal history of pneumonia (recurrent)
CPT/HCPCS: 36415; 66984; 80048; 82948; 85025; 85610; 85730; J2250; J3010; J7050; U0002; V2632

== ENCOUNTER → 2021-02-08 | Day surgery (SDC) | payer MEDICARE ==
[~2021-02-08] MED LIST changes: -SODIUM CHLORIDE 0.9% 250ML 250 ML ONE; +SODIUM CHLORIDE 0.9% 500ML 500 ML ONE
[2021-02-08 13:23] LABS: BASOPHILS # (AUTO) 0.1 (0.0-0.1); BASOPHILS % 0.8 % (0.0-1.0); EOSINOPHILS # (AUTO) 0.2 (0.0-0.4); EOSINOPHILS % 3.5 % (0.0-6.0); HEMATOCRIT 30.6 % (38.2-49.6); HEMOGLOBIN 9.2 g/dL (14.0-18.0); LYMPHOCYTES # (AUTO) 1.9 (1.0-3.2); LYMPHOCYTES % 28.9 % (18.0-39.1); MEAN CORPUSCULAR HEMOGLOBIN 27.8 pg (28-32); MEAN CORPUSCULAR HGB CONC 30.1 g/dL (31-35); MEAN CORPUSCULAR VOLUME 92.4 fL (81-99); MONOCYTES # (AUTO) 0.6 (0.2-0.8); NEUTROPHILS # (AUTO) 3.7 (2.1-6.9); NEUTROPHILS % 57.3 % (38.7-80.0); PLATELET COUNT 245 x10e3/uL (140-360); RED BLOOD COUNT 3.31 x10e6/uL (4.3-5.7); RED CELL DISTRIBUTION WIDTH 22.7 % (11.7-14.4)
[2021-02-08 13:32] LABS: PARTIAL THROMBOPLASTIN TIME 26.5 seconds (23.8-35.5); PROTHROMBIN TIME 13.8 seconds (11.9-14.5)
[2021-02-08 13:36] LABS: ANION GAP 15.4 mmol/L (8-16); CALCIUM 8.5 mg/dL (8.4-10.2); CREATININE, SERUM 6.55 mg/dL (0.72-1.25); POTASSIUM 4.4 mmol/L (3.5-5.1)
[2021-02-08 15:23] VITALS: BP 156/73
== END | disposition home or self-care (01) ==
LOC: OR 11:19
PROVIDERS: ATTEND Ophthalmology
DX: H25.11 Age-related nuclear cataract, right eye (principal); E11.22 Type 2 diabetes mellitus with diabetic chronic kidney disease; I12.0 Hypertensive chronic kidney disease with stage 5 chronic kidney disease or end stage renal disease; N18.6 End stage renal disease; Z99.2 Dependence on renal dialysis; Z79.4 Long term (current) use of insulin; I69.359 Hemiplegia and hemiparesis following cerebral infarction affecting unspecified side; I69.328 Other speech and language deficits following cerebral infarction; E78.5 Hyperlipidemia, unspecified; Z01.812 Encounter for preprocedural laboratory examination; Z20.822 Contact with and (suspected) exposure to COVID-19; Z86.16 Personal history of COVID-19; Z79.899 Other long term (current) drug therapy; Z79.82 Long term (current) use of aspirin
CPT/HCPCS: 36415; 66984; 80048; 82948; 85025; 85610; 85730; J2250; J3010; J7040; U0002

== ENCOUNTER 2021-05-17 13:07 | Emergency (ER) | payer MEDICARE ==
[~2021-05-17] VITALS: Ht 160 cm; Wt 70.3 kg
[~2021-05-17 13:07] MED LIST changes: -FENTANYL CITRATE/PF 100MCG/2 ML INJ ONE; -MIDAZOLAM HCL 2 MG/2 ML VIAL ONE; -OR PHACO EYE KIT ONE; -PREOP PHACO EYE KIT ONE; -SODIUM CHLORIDE 0.9% 500ML 500 ML ONE
== END 2021-05-17 14:30 | disposition home or self-care (01) ==
LOC: ER 13:40
DX: I10 Essential (primary) hypertension (principal)
CPT/HCPCS: 99283

== ENCOUNTER 2023-06-25 14:26 | Inpatient (IN) | payer MEDICARE ==
[~2023-06-25] VITALS: Ht 160 cm; Wt 70.3 kg
[~2023-06-25 14:26] MED LIST changes: +DICYCLOMINE HCL20 MG PO; +MIRALAX17 GM PO; +ONDANSETRON ODT4 MG PO
[2023-06-25 16:54] LABS: BASOPHILS # (AUTO) 0.1 (0.0-0.1); BASOPHILS % 0.7 % (0.0-1.0); EOSINOPHILS % 0.1 % (0.0-6.0); HEMATOCRIT 34.2 % (38.2-49.6); HEMOGLOBIN 10.8 g/dL (14.0-18.0); LYMPHOCYTES # (AUTO) 0.9 (1.0-3.2); LYMPHOCYTES % 13.3 % (18.0-39.1); MEAN CORPUSCULAR HEMOGLOBIN 28.7 pg (28-32); MEAN CORPUSCULAR HGB CONC 31.6 g/dL (31-35); MONOCYTES # (AUTO) 0.5 (0.2-0.8); MONOCYTES % 6.5 % (4.4-11.3); NEUTROPHILS # (AUTO) 5.5 (2.1-6.9); NEUTROPHILS % 78.7 % (38.7-80.0); PLATELET COUNT 106 x10e3/uL (140-360); RED BLOOD COUNT 3.76 x10e6/uL (4.3-5.7); RED CELL DISTRIBUTION WIDTH 14.6 % (11.7-14.4); WHITE BLOOD COUNT 6.93 x10e3/uL (4.8-10.8)
[2023-06-25 17:13] LABS: ALBUMIN 3.2 g/dL (3.5-5.0); ALBUMIN/GLOBULIN RATIO 0.7 (0.8-2.0); ANION GAP 23.4 mmol/L (8-16); BILIRUBIN,TOTAL 1.6 mg/dL (0.2-1.2); CALCIUM 9.1 mg/dL (8.4-10.2); CREATININE, SERUM 11.19 mg/dL (0.72-1.25); POTASSIUM 4.4 mmol/L (3.5-5.1); TOTAL PROTEIN 7.6 g/dL (6.5-8.1)
[2023-06-25] MEDS ORDERED: SODIUM CHLORIDE FLUSH 10 ML SYR INJ PRN (20:00)
[2023-06-25 20:45] VITALS: PULSE 65; RESP 18; O2SAT 97
[2023-06-25] MEDS ORDERED: DEXTROSE 50% SYRINGE 50 ML IV PRN (20:45)
[2023-06-25] MEDS ORDERED: ACETAMINOPHEN 325 MG TAB PO ONE (21:00)
[2023-06-25] MEDS: INSULIN REGULAR, HUMAN 100 UNIT/1 ML SQ SCH (21:00)
[2023-06-25] MEDS ORDERED: Vancomycin IV 1.25 GM in SODIUM CHLORIDE 0.9% 250ML 250 ML IV ONE (21:00)
[2023-06-25] MEDS ORDERED: CEFEPIME 2 GM in SODIUM CHLORIDE 0.9% 100 ML IV ONE (21:00)
[2023-06-25] MEDS ORDERED: SODIUM CHLORIDE 0.9% 100 ML ONE (21:03)
[2023-06-25] MEDS ORDERED: CEFEPIME 2 GM VIAL ONE (21:03)
[2023-06-25 21:45] VITALS: BP 153/66; PULSE 59; RESP 18; TEMP 99.5; O2SAT 97
[2023-06-25 22:00] VITALS: BP 153/66; PULSE 59; RESP 18; TEMP 99.5; O2SAT 97
[2023-06-25] MEDS ORDERED: HYDRALAZINE HCL50 MG PO (22:51)
[2023-06-25 23:01] VITALS: BP 153/66; PULSE 59; RESP 18; TEMP 99.5
[2023-06-25 23:47] VITALS: BP 168/54; PULSE 60; RESP 20; TEMP 98.6; O2SAT 99
[2023-06-26] VITALS (9 sets, daily range): BP systolic 120–196; BP diastolic 42–104; PULSE 62–96; RESP 14–20; TEMP 98.1–101.8; O2SAT 95–100
[2023-06-26 06:46] LABS: BASOPHILS # (AUTO) 0.1 (0.0-0.1); BASOPHILS % 0.7 % (0.0-1.0); EOSINOPHILS % 0.6 % (0.0-6.0); HEMATOCRIT 33.8 % (38.2-49.6); HEMOGLOBIN 11.1 g/dL (14.0-18.0); LYMPHOCYTES # (AUTO) 1.5 (1.0-3.2); MEAN CORPUSCULAR HEMOGLOBIN 29.1 pg (28-32); MEAN CORPUSCULAR HGB CONC 32.8 g/dL (31-35); MEAN CORPUSCULAR VOLUME 88.5 fL (81-99); MONOCYTES # (AUTO) 0.6 (0.2-0.8); MONOCYTES % 8.8 % (4.4-11.3); NEUTROPHILS % 69.2 % (38.7-80.0); PLATELET COUNT 106 x10e3/uL (140-360); RED BLOOD COUNT 3.82 x10e6/uL (4.3-5.7); RED CELL DISTRIBUTION WIDTH 14.5 % (11.7-14.4); WHITE BLOOD COUNT 7.24 x10e3/uL (4.8-10.8)
[2023-06-26 07:26] LABS: ALBUMIN 2.9 g/dL (3.5-5.0); ALBUMIN/GLOBULIN RATIO 0.7 (0.8-2.0); ANION GAP 22.6 mmol/L (8-16); BILIRUBIN,TOTAL 1.5 mg/dL (0.2-1.2); CALCIUM 8.6 mg/dL (8.4-10.2); CREATININE, SERUM 12.23 mg/dL (0.72-1.25); POTASSIUM 4.6 mmol/L (3.5-5.1); TOTAL PROTEIN 6.8 g/dL (6.5-8.1)
[2023-06-26] MEDS: INSULIN REGULAR, HUMAN 100 UNIT/1 ML SQ SCH ×4 (07:30→21:00)
[2023-06-26] MEDS: NIFEDIPINE CR 30 MG TAB PO SCH (12:43)
[2023-06-26] MEDS ORDERED: HYDRALAZINE HCL 20 MG/ML VIAL IV STA (15:25)
[2023-06-26] MEDS ORDERED: HYDRALAZINE HCL 20 MG/ML VIAL IV ONE (15:30)
[2023-06-26] MEDS ORDERED: HYDRALAZINE HCL 20 MG/ML VIAL IV PRN (15:30)
[2023-06-26] MEDS ORDERED: SODIUM CHLORIDE 0.9% 1000ML 2,000 ML IV PRN (15:45)
[2023-06-26] MEDS ORDERED: CLONIDINE HCL 0.1 MG TAB PO SCH ×2 (16:00→21:00)
[2023-06-26] MEDS ORDERED: VALSARTAN 80 MG TAB PO SCH (21:00)
[2023-06-27] VITALS (8 sets, daily range): BP systolic 149–168; BP diastolic 41–75; PULSE 64–93; RESP 16–19; TEMP 97.7–98.9; O2SAT 98–100
[2023-06-27] MEDS ORDERED: POLYETHYLENE GLYCOL 3350 17 GM PACK PO PRN (00:15)
[2023-06-27] MEDS ORDERED: INSULIN GL100 UNIT/3 SQ (00:15)
[2023-06-27] MEDS ORDERED: METOPROLOL TART25 MG PO (00:16)
[2023-06-27] MEDS: INSULIN REGULAR, HUMAN 100 UNIT/1 ML SQ SCH ×5 (07:30→23:10)
[2023-06-27 08:26] LABS: HEPATITIS B SURFACE AG (P) Negative (Negative)
[2023-06-27] MEDS: ASPIRIN 81 MG CHEW TAB PO SCH (08:42)
[2023-06-27] MEDS: FOLIC ACID/CYANOCOB/PYRIDOXINE TAB PO SCH (08:42)
[2023-06-27] MEDS: PANTOPRAZOLE SOD 40 MG TABEC PO SCH ×2 (08:42→08:44)
[2023-06-27] MEDS: SEVELAMER CARBONATE 800 MG TAB PO SCH ×3 (08:43→21:38)
[2023-06-27] MEDS: NIFEDIPINE CR 30 MG TAB PO SCH (08:43)
[2023-06-27] MEDS: ONDANSETRON HCL INJ 2MG/ML 2ML 2 MG/ML VIAL IV PRN (16:34)
[2023-06-27] MEDS: FENOFIBRATE 145 MG TAB PO SCH (21:39)
[2023-06-27] MEDS: ATORVASTATIN 20 MG TAB PO SCH (21:39)
[2023-06-27] MEDS: VALSARTAN 80 MG TAB PO SCH (21:42)
[2023-06-28] VITALS (9 sets, daily range): BP systolic 109–177; BP diastolic 40–73; PULSE 86–93; RESP 16–21; TEMP 98.2–98.7; O2SAT 98–100
[2023-06-28] MEDS: INSULIN REGULAR, HUMAN 100 UNIT/1 ML SQ SCH ×4 (07:30→21:14)
[2023-06-28] MEDS: NIFEDIPINE CR 30 MG TAB PO SCH (10:35)
[2023-06-28] MEDS: SEVELAMER CARBONATE 800 MG TAB PO SCH ×3 (10:35→21:06)
[2023-06-28] MEDS: FOLIC ACID/CYANOCOB/PYRIDOXINE TAB PO SCH (10:35)
[2023-06-28] MEDS: ASPIRIN 81 MG CHEW TAB PO SCH (10:35)
[2023-06-28] MEDS: CLONIDINE HCL 0.1 MG TAB PO SCH ×2 (12:33→16:55)
[2023-06-28] MEDS: FENOFIBRATE 145 MG TAB PO SCH (21:06)
[2023-06-28] MEDS: ATORVASTATIN 20 MG TAB PO SCH (21:07)
[2023-06-28] MEDS: VALSARTAN 80 MG TAB PO SCH (21:08)
[2023-06-29] VITALS (8 sets, daily range): BP systolic 119–160; BP diastolic 34–107; PULSE 69–99; RESP 16–19; TEMP 97.4–98.4; O2SAT 94–100
[2023-06-29] MEDS: PANTOPRAZOLE SOD 40 MG TABEC PO SCH (08:35)
[2023-06-29] MEDS: INSULIN REGULAR, HUMAN 100 UNIT/1 ML SQ SCH ×4 (08:36→21:21)
[2023-06-29] MEDS: SEVELAMER CARBONATE 800 MG TAB PO SCH ×3 (09:00→21:12)
[2023-06-29] MEDS: NIFEDIPINE CR 30 MG TAB PO SCH (09:00)
[2023-06-29] MEDS: FOLIC ACID/CYANOCOB/PYRIDOXINE TAB PO SCH (09:00)
[2023-06-29] MEDS: CLONIDINE HCL 0.1 MG TAB PO SCH ×2 (09:00→16:54)
[2023-06-29] MEDS: ASPIRIN 81 MG CHEW TAB PO SCH (09:00)
[2023-06-29] MEDS: ONDANSETRON HCL INJ 2MG/ML 2ML 2 MG/ML VIAL IV PRN ×2 (10:56→16:40)
[2023-06-29] MEDS: FENOFIBRATE 145 MG TAB PO SCH (21:12)
[2023-06-29] MEDS: ATORVASTATIN 20 MG TAB PO SCH (21:12)
[2023-06-30] VITALS (8 sets, daily range): BP systolic 109–140; BP diastolic 33–72; PULSE 73–113; RESP 18–20; TEMP 97.1–98.6; O2SAT 90–100
[2023-06-30 09:26] LABS: BASOPHILS # (AUTO) 0.1 (0.0-0.1); BASOPHILS % 0.6 % (0.0-1.0); EOSINOPHILS # (AUTO) 0.1 (0.0-0.4); EOSINOPHILS % 1.3 % (0.0-6.0); HEMATOCRIT 37.8 % (38.2-49.6); HEMOGLOBIN 11.9 g/dL (14.0-18.0); LYMPHOCYTES # (AUTO) 2.1 (1.0-3.2); LYMPHOCYTES % 24.9 % (18.0-39.1); MEAN CORPUSCULAR HEMOGLOBIN 28.7 pg (28-32); MEAN CORPUSCULAR HGB CONC 31.5 g/dL (31-35); MEAN CORPUSCULAR VOLUME 91.3 fL (81-99); MONOCYTES # (AUTO) 0.7 (0.2-0.8); MONOCYTES % 8.6 % (4.4-11.3); NEUTROPHILS # (AUTO) 5.3 (2.1-6.9); NEUTROPHILS % 63.8 % (38.7-80.0); PLATELET COUNT 198 x10e3/uL (140-360); RED BLOOD COUNT 4.14 x10e6/uL (4.3-5.7); RED CELL DISTRIBUTION WIDTH 14.6 % (11.7-14.4); WHITE BLOOD COUNT 8.37 x10e3/uL (4.8-10.8)
[2023-06-30 09:43] LABS: ANION GAP 21.3 mmol/L (8-16); CALCIUM 9.2 mg/dL (8.4-10.2); CREATININE, SERUM 6.94 mg/dL (0.72-1.25); POTASSIUM 4.3 mmol/L (3.5-5.1)
[2023-06-30] MEDS: SEVELAMER CARBONATE 800 MG TAB PO SCH ×3 (10:15→21:21)
[2023-06-30] MEDS: INSULIN REGULAR, HUMAN 100 UNIT/1 ML SQ SCH ×4 (10:15→21:36)
[2023-06-30] MEDS: ASPIRIN 81 MG CHEW TAB PO SCH (10:16)
[2023-06-30] MEDS: PANTOPRAZOLE SOD 40 MG TABEC PO SCH (10:16)
[2023-06-30] MEDS: FOLIC ACID/CYANOCOB/PYRIDOXINE TAB PO SCH (10:16)
[2023-06-30] MEDS: NIFEDIPINE CR 30 MG TAB PO SCH (12:21)
[2023-06-30] MEDS: CLONIDINE HCL 0.1 MG TAB PO SCH ×2 (12:21→17:00)
[2023-06-30] MEDS: FENOFIBRATE 145 MG TAB PO SCH (21:20)
[2023-06-30] MEDS: ATORVASTATIN 20 MG TAB PO SCH (21:22)
[2023-06-30] MEDS: VALSARTAN 80 MG TAB PO SCH ×2 (21:22→21:25)
[2023-07-01] VITALS (9 sets, daily range): BP systolic 92–173; BP diastolic 24–61; PULSE 64–88; RESP 16–20; TEMP 97–97.9; O2SAT 90–100
[2023-07-01] MEDS: CLONIDINE HCL 0.1 MG TAB PO SCH ×2 (09:00→17:00)
[2023-07-01] MEDS: NIFEDIPINE CR 30 MG TAB PO SCH (09:00)
[2023-07-01] MEDS: INSULIN REGULAR, HUMAN 100 UNIT/1 ML SQ SCH ×4 (10:03→21:08)
[2023-07-01] MEDS: SEVELAMER CARBONATE 800 MG TAB PO SCH ×3 (10:04→20:54)
[2023-07-01] MEDS: ASPIRIN 81 MG CHEW TAB PO SCH (10:05)
[2023-07-01] MEDS: PANTOPRAZOLE SOD 40 MG TABEC PO SCH (10:06)
[2023-07-01] MEDS: FOLIC ACID/CYANOCOB/PYRIDOXINE TAB PO SCH (10:06)
[2023-07-01] MEDS: FENOFIBRATE 145 MG TAB PO SCH (20:54)
[2023-07-01] MEDS: ATORVASTATIN 20 MG TAB PO SCH (20:55)
[2023-07-01] MEDS: VALSARTAN 80 MG TAB PO SCH (20:56)
[2023-07-02] VITALS (7 sets, daily range): BP systolic 129–183; BP diastolic 35–83; PULSE 75–98; RESP 18–21; TEMP 97–98.6; O2SAT 92–100
[2023-07-02] MEDS: SEVELAMER CARBONATE 800 MG TAB PO SCH ×3 (08:40→21:44)
[2023-07-02] MEDS: ASPIRIN 81 MG CHEW TAB PO SCH (08:40)
[2023-07-02] MEDS: PANTOPRAZOLE SOD 40 MG TABEC PO SCH (08:41)
[2023-07-02] MEDS: FOLIC ACID/CYANOCOB/PYRIDOXINE TAB PO SCH (08:41)
[2023-07-02] MEDS: INSULIN REGULAR, HUMAN 100 UNIT/1 ML SQ SCH ×4 (08:46→21:55)
[2023-07-02] MEDS: CLONIDINE HCL 0.1 MG TAB PO SCH ×2 (08:49→17:00)
[2023-07-02] MEDS: NIFEDIPINE CR 30 MG TAB PO SCH (08:50)
[2023-07-02 09:22] LABS: BASOPHILS # (AUTO) 0.1 (0.0-0.1); BASOPHILS % 0.6 % (0.0-1.0); EOSINOPHILS # (AUTO) 0.1 (0.0-0.4); EOSINOPHILS % 1.3 % (0.0-6.0); HEMATOCRIT 32.7 % (38.2-49.6); HEMOGLOBIN 10.6 g/dL (14.0-18.0); LYMPHOCYTES # (AUTO) 2.4 (1.0-3.2); LYMPHOCYTES % 24.9 % (18.0-39.1); MEAN CORPUSCULAR HEMOGLOBIN 28.9 pg (28-32); MEAN CORPUSCULAR HGB CONC 32.4 g/dL (31-35); MEAN CORPUSCULAR VOLUME 89.1 fL (81-99); MONOCYTES # (AUTO) 0.9 (0.2-0.8); MONOCYTES % 9.5 % (4.4-11.3); NEUTROPHILS # (AUTO) 6.1 (2.1-6.9); NEUTROPHILS % 63.2 % (38.7-80.0); PLATELET COUNT 220 x10e3/uL (140-360); RED BLOOD COUNT 3.67 x10e6/uL (4.3-5.7); WHITE BLOOD COUNT 9.66 x10e3/uL (4.8-10.8)
[2023-07-02 09:51] LABS: ANION GAP 22.4 mmol/L (8-16); CALCIUM 9.2 mg/dL (8.4-10.2); CREATININE, SERUM 11.47 mg/dL (0.72-1.25); POTASSIUM 4.4 mmol/L (3.5-5.1)
[2023-07-02] MEDS ORDERED: HEPARIN SOD (PORCINE) 1000 UNIT/ML SDV ONE (09:53)
[2023-07-02] MEDS ORDERED: HEPARIN SOD (PORCINE) 1000 UNIT/ML SDV IV PRN (10:00)
[2023-07-02] MEDS ORDERED: MANNITOL 25% 12.5GM/50 ML VIAL IV PRN (10:00)
[2023-07-02] MEDS ORDERED: ALBUMIN 25% 12.5GM 0.25 GM/ML BTL IV PRN (10:00)
[2023-07-02] MEDS: ONDANSETRON HCL INJ 2MG/ML 2ML 2 MG/ML VIAL IV PRN (10:17)
[2023-07-02] MEDS: FENOFIBRATE 145 MG TAB PO SCH (21:44)
[2023-07-02] MEDS: ATORVASTATIN 20 MG TAB PO SCH (21:44)
[2023-07-02] MEDS: VALSARTAN 80 MG TAB PO SCH (21:45)
[2023-07-03] VITALS (7 sets, daily range): BP systolic 118–168; BP diastolic 40–73; PULSE 86–94; RESP 18–20; TEMP 97.8–99.1; O2SAT 97–100
[2023-07-03] MEDS: PANTOPRAZOLE SOD 40 MG TABEC PO SCH (09:19)
[2023-07-03] MEDS: FOLIC ACID/CYANOCOB/PYRIDOXINE TAB PO SCH (09:19)
[2023-07-03] MEDS: ASPIRIN 81 MG CHEW TAB PO SCH (09:19)
[2023-07-03] MEDS: SEVELAMER CARBONATE 800 MG TAB PO SCH ×2 (09:19→14:53)
[2023-07-03] MEDS: CLONIDINE HCL 0.1 MG TAB PO SCH ×2 (09:20→16:50)
[2023-07-03] MEDS: NIFEDIPINE CR 30 MG TAB PO SCH (09:20)
[2023-07-03] MEDS: INSULIN REGULAR, HUMAN 100 UNIT/1 ML SQ SCH ×3 (09:27→17:02)
[2023-07-03] MEDS ORDERED: DIOVAN80 MG PO (17:36)
[2023-07-03] MEDS ORDERED: LANTUS 3ML100 UNITS/ SQ (17:45)
== END 2023-07-03 20:01 | DRG 70 ==
LOC: ER 14:40 → ERHOLD 19:54 → MED/SURG3 21:40 → OBSVTOIN 06-27 13:59
PROVIDERS: ADMIT Internal Medicine; ATTEND Internal Medicine
PROC: 5A1D70Z Performance of Urinary Filtration, Intermittent, Less than 6 Hours Per Day (ICD-10-PCS; principal; 2023-06-26)
DX: G93.40 Encephalopathy, unspecified (principal); N18.6 End stage renal disease; I13.2 Hypertensive heart and chronic kidney disease with heart failure and with stage 5 chronic kidney disease, or end stage renal disease; N25.81 Secondary hyperparathyroidism of renal origin; I69.351 Hemiplegia and hemiparesis following cerebral infarction affecting right dominant side; E11.22 Type 2 diabetes mellitus with diabetic chronic kidney disease; R29.6 Repeated falls; D63.1 Anemia in chronic kidney disease; D69.6 Thrombocytopenia, unspecified; E11.21 Type 2 diabetes mellitus with diabetic nephropathy; I50.9 Heart failure, unspecified; E11.319 Type 2 diabetes mellitus with unspecified diabetic retinopathy without macular edema; E11.40 Type 2 diabetes mellitus with diabetic neuropathy, unspecified; K21.9 Gastro-esophageal reflux disease without esophagitis; E78.5 Hyperlipidemia, unspecified; E11.65 Type 2 diabetes mellitus with hyperglycemia; F03.90 Unspecified dementia, unspecified severity, without behavioral disturbance, psychotic disturbance, mood disturbance, and anxiety; I25.10 Atherosclerotic heart disease of native coronary artery without angina pectoris; Z99.2 Dependence on renal dialysis; Z90.49 Acquired absence of other specified parts of digestive tract; Z79.82 Long term (current) use of aspirin; Z79.4 Long term (current) use of insulin; Z86.16 Personal history of COVID-19
CPT/HCPCS: 36415; 70450; 71045; 80048; 80053; 82948; 83605; 84484; 85025; 86706; 87040; 87340; 87400; 93005; 94799; 95819; 96372; 99284; G0378; J0692; J1644; J2405; J7030; J7050; U0002

== ENCOUNTER → 2024-02-05 | Outpatient (REF) | payer MEDICARE ==
[~2024-02-05] MED LIST changes: +AZITHROMYCIN250 MG PO; +DIOVAN80 MG PO; +HYDRALAZINE HCL50 MG PO; +INSULIN GL100 UNIT/3 SQ; +LANTUS 3ML100 UNITS/ SQ; +METOPROLOL TART25 MG PO; +REGADENOSON 0.4 MG/5 ML SYR IV ONE; +ULTRAM 50MG50 MG PO
== END ==
LOC: NM 10:32
PROVIDERS: ATTEND Internal Medicine Cardiovascular Disease
DX: R06.02 Shortness of breath (principal); R07.9 Chest pain, unspecified
CPT/HCPCS: 78452; 93017; A9502; J2785